=== PATIENT | female | born 1965 | race Two or more races ===

== ENCOUNTER 2020-11-17 06:52 | Outpatient (CLI) | payer OTHER | END 2020-11-17 07:07 | disposition home or self-care (01) | LOC: LAB 06:52 | PROVIDERS: ATTEND Surgery | DX: K62.5 Hemorrhage of anus and rectum (principal); K60.1 Chronic anal fissure; K62.89 Other specified diseases of anus and rectum; K59.09 Other constipation; K62.4 Stenosis of anus and rectum; I10 Essential (primary) hypertension ==